=== PATIENT | female | born 1980 ===

== ENCOUNTER 2019-04-16 05:42 | Inpatient (IN) | payer BC, OTHER ==
[~2019-04-16] VITALS: Ht 160 cm; Wt 100.0 kg
[2019-04-16] MEDS ORDERED: OXYTOCIN 30U/ 0.9% NaCL 500ML 500 ML IV PRN (05:47)
[2019-04-16] MEDS ORDERED: D5%-LACTATED RINGERS 1,000 ML IV SCH (05:47)
[2019-04-16] MEDS ORDERED: LACTATED RINGERS 1,000 ML IV SCH ×2 (05:47→08:06)
[2019-04-16] MEDS ORDERED: OXYTOCIN 30U/ 0.9% NaCL 500ML 500 ML IV ONE (05:47)
[2019-04-16] MEDS ORDERED: OXYTOCIN 30U/ 0.9% NaCL 500ML 500 ML ONE ×2 (05:55→06:10)
[2019-04-16] MEDS ORDERED: NEWBORN KIT ONE (05:55)
[2019-04-16] MEDS ORDERED: METOCLOPRAMIDE 5 MG/ML, 2ML IVPush PRN (06:00)
[2019-04-16] MEDS ORDERED: ALUMINUM/MAG/SIMETHICONE 30 ML UDC PO PRN (06:00)
[2019-04-16] MEDS ORDERED: TERBUTALINE 1 MG/ML, 1ML SQ PRN (06:00)
[2019-04-16] MEDS ORDERED: ONDANSETRON 2MG/ML, 2ML IVPush PRN (06:00)
[2019-04-16] MEDS ORDERED: TERBUTALINE 1 MG/ML, 1ML IVPush PRN (06:00)
[2019-04-16] MEDS ORDERED: SODIUM CITRATE/CITRIC ACID 30 ML UDC PO PRN (06:00)
[2019-04-16] MEDS ORDERED: CALCIUM CARBONATE 500 MG TAB.CHEW PO PRN ×2 (06:00→15:00)
[2019-04-16] MEDS ORDERED: FENTANYL PF 100 MCG/2ML IV PRN (06:00)
[2019-04-16] MEDS ORDERED: FENTANYL PF 100 MCG/2ML IVPush PRN (06:00)
[2019-04-16 06:24] LABS: BASOPHILS # (AUTO) 0.02 x10^3/uL (0-0.1); BASOPHILS % (AUTO) 0 % (0-1); EOSINOPHILS # (AUTO) 0.16 x10^3/uL (0-0.4); EOSINOPHILS % (AUTO) 2 % (1-7); LYMPHOCYTES # (AUTO) 2.05 x10^3/uL (1-3.4); LYMPHOCYTES % (AUTO) 19 % (22-44); MD NO; MEAN CORPUSCULAR HGB CONC 32.8 g/dL (32.4-35.8); MEAN CORPUSCULAR VOLUME 91.5 fL (80-100); MEAN PLATELET VOLUME 9.2 fL (7.4-10.4); MONOCYTES # (AUTO) 0.64 x10^3/uL (0.2-0.8); MONOCYTES % (AUTO) 6 % (2-9); NEUTROPHILS # (AUTO) 7.93 x10^3/uL (1.8-6.8); NEUTROPHILS % (AUTO) 73 % (42-75); PLATELET COUNT 274 x10^3/uL (130-400); RED BLOOD COUNT 4.22 x10^6/uL (3.82-5.3); RED CELL DISTRIBUTION WIDTH 14.4 % (9.6-15.2)
[2019-04-16] MEDS ORDERED: PLEASE ENTER HEIGHT AND WEIGHT MC SCH (06:30)
[2019-04-16] MEDS ORDERED: FENTANYL/BUPIV./NS/PF 250 ML EPIDCONT SCH ×2 (06:55→08:06)
[2019-04-16] MEDS: LACTATED RINGERS 1,000 ML IV SCH ×3 (06:55→22:55)
[2019-04-16] MEDS ORDERED: EPHEDRINE 50 MG/ML, 1ML IVPush PRN ×2 (07:00→08:30)
[2019-04-16] MEDS ORDERED: LACTATED RINGERS 1,000 ML IVBOLUS PRN ×2 (07:00→08:30)
[2019-04-16] MEDS ORDERED: FENTANYL PF 500 MCG, BUPIVACAINE/PF 0.5%, 30ML 62.5 ML in SODIUM CHLORIDE 0.9% 177.5 ML EPIDCONT SCH (08:00)
[2019-04-16] MEDS ORDERED: NALOXONE 0.4 MG/ML, 1ML IVPush PRN (08:30)
[2019-04-16] MEDS ORDERED: FENTANYL PF 100 MCG/2ML ONE (09:27)
[2019-04-16] MEDS ORDERED: BUPIVACAINE 0.25% ONE (10:41)
[2019-04-16] MEDS ORDERED: LACTATED RINGERS 1,000 ML INTUTE PRN (13:30)
[2019-04-16] MEDS: OXYTOCIN 30U/ 0.9% NaCL 500ML 500 ML IV SCH (14:41)
[2019-04-16] MEDS ORDERED: ACETAMINOPHEN 325 MG TABLET PO PRN ×2 (15:00)
[2019-04-16] MEDS ORDERED: GLYCERIN ADULT SUPP PR PRN (15:00)
[2019-04-16] MEDS ORDERED: SIMETHICONE 80 MG CHEW TAB PO PRN (15:00)
[2019-04-16] MEDS ORDERED: BISACODYL 10 MG SUPP PR PRN (15:00)
[2019-04-16] MEDS ORDERED: DIPH,PERTUSS(ACELL),TET VAC/PF NC IM-VACC PRN (15:00)
[2019-04-16] MEDS ORDERED: MISOPROSTOL 200 MCG TABLET PR PRN (15:00)
[2019-04-16] MEDS ORDERED: METOCLOPRAMIDE 5 MG/ML, 2ML IV PRN (15:00)
[2019-04-16] MEDS ORDERED: MEASLES,MUMPS&RUBELLA VACC/PF 0.5 ML SQ-VACC PRN (15:00)
[2019-04-16] MEDS ORDERED: OXYcodone/APAP 5/325MG TABLET PO PRN ×2 (15:00)
[2019-04-16] MEDS ORDERED: METHYLERGONOVINE 0.2 MG/ML IM PRN (15:00)
[2019-04-16] MEDS ORDERED: MAGNESIUM HYDROXIDE 8%, 30ML UDC PO PRN (15:00)
[2019-04-16] MEDS ORDERED: CARBOPROST TROMETHAMINE 250 MCG/ML, 1ML IM PRN (15:00)
[2019-04-16] MEDS ORDERED: ONDANSETRON 2MG/ML, 2ML IV PRN (15:00)
[2019-04-16] MEDS ORDERED: IBUPROFEN 600 MG TABLET ONE (15:25)
[2019-04-16] MEDS: IBUPROFEN 600 MG TABLET PO PRN ×2 (15:26→21:33)
[2019-04-16 18:13] VITALS: BP 108/80
[2019-04-16] MEDS: ACETAMINOPHEN 325 MG TABLET PO PRN ×2 (19:49→23:55)
[2019-04-16] MEDS: DOCUSATE 100 MG CAPSULE PO PRN (19:49)
[2019-04-16 20:00] VITALS: BP 124/75
[2019-04-16 22:55] LABS: BASOPHILS # (AUTO) 0.04 x10^3/uL (0-0.1); BASOPHILS % (AUTO) 0 % (0-1); EOSINOPHILS # (AUTO) 0.24 x10^3/uL (0-0.4); EOSINOPHILS % (AUTO) 2 % (1-7); LYMPHOCYTES % (AUTO) 16 % (22-44); MD NO; MEAN CORPUSCULAR HGB CONC 32.8 g/dL (32.4-35.8); MEAN CORPUSCULAR VOLUME 91.4 fL (80-100); MEAN PLATELET VOLUME 9.8 fL (7.4-10.4); MONOCYTES # (AUTO) 0.72 x10^3/uL (0.2-0.8); MONOCYTES % (AUTO) 6 % (2-9); NEUTROPHILS # (AUTO) 9.83 x10^3/uL (1.8-6.8); NEUTROPHILS % (AUTO) 77 % (42-75); PLATELET COUNT 231 x10^3/uL (130-400); RED BLOOD COUNT 3.65 x10^6/uL (3.82-5.3); RED CELL DISTRIBUTION WIDTH 14.8 % (9.6-15.2)
[2019-04-17] VITALS: BP 105/66
[2019-04-17] MEDS: OXYTOCIN 30U/ 0.9% NaCL 500ML 500 ML IV SCH ×2 (00:41→10:41)
[2019-04-17 03:30] VITALS: BP 122/85
[2019-04-17] MEDS: IBUPROFEN 600 MG TABLET PO PRN ×2 (03:31→09:46)
[2019-04-17] MEDS: LACTATED RINGERS 1,000 ML IV SCH ×2 (06:55→14:55)
[2019-04-17 07:00] VITALS: BP 110/73
[2019-04-17] MEDS ORDERED: PRENATAL VIT/IRON/FA 1 EACH TABLET PO SCH (09:00)
[2019-04-17] MEDS: DOCUSATE 100 MG CAPSULE PO PRN (09:47)
[2019-04-17 12:00] VITALS: BP 118/71
[2019-04-17] MEDS: ACETAMINOPHEN 325 MG TABLET PO PRN ×2 (12:11→16:48)
[2019-04-17] MEDS ORDERED: IBUP-1222 PO (14:01)
== END 2019-04-17 16:55 | disposition home or self-care (01) | DRG 807 ==
LOC: LDIP 05:42 → 2NW 16:22
PROVIDERS: ADMIT Obstetrics & Gynecology; ATTEND Obstetrics & Gynecology
PROC: 10E0XZZ Delivery of Products of Conception, External Approach (ICD-10-PCS; principal; 2019-04-16)
PROC: 0KQM0ZZ Repair Perineum Muscle, Open Approach (ICD-10-PCS; 2019-04-16)
PROC: 3E0R3BZ Introduction of Anesthetic Agent into Spinal Canal, Percutaneous Approach (ICD-10-PCS; 2019-04-16)
PROC: 00HU33Z Insertion of Infusion Device into Spinal Canal, Percutaneous Approach (ICD-10-PCS; 2019-04-16)
DX: O26.62 Liver and biliary tract disorders in childbirth (principal); Z37.0 Single live birth; K74.3 Primary biliary cirrhosis; Z3A.39 39 weeks gestation of pregnancy; Z86.32 Personal history of gestational diabetes; O70.1 Second degree perineal laceration during delivery
CPT/HCPCS: 36415; S0020; 85025; 86850; 86900; G0378; J3010; J3490; J2590; J7050; J7120